=== PATIENT | male | born 1990 | race Caucasian/White ===

== ENCOUNTER 2017-03-27 07:27 | Emergency (ER) | payer SELFPAY ==
[~2017-03-27] VITALS: Ht 198.1 cm; Wt 136.1 kg
[~2017-03-27 07:27] MED LIST: ACHD5005 PO; IBP800T PO; NAPR-243 PO; TRAM50TA2 PO
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
[2017-03-27 09:12] VITALS: BP 143/95
== END 2017-03-27 09:12 | disposition home or self-care (01) ==
LOC: EDUNIT# 07:27 → ER 07:31
DX: S49.92XA Unspecified injury of left shoulder and upper arm, initial encounter (principal); F17.210 Nicotine dependence, cigarettes, uncomplicated; Y04.8XXA Assault by other bodily force, initial encounter; Y92.414 Local residential or business street as the place of occurrence of the external cause; Y99.8 Other external cause status
CPT/HCPCS: 73030; 99282